=== PATIENT | female | born 1985 | race Caucasian/White ===

== ENCOUNTER 2017-08-26 01:44 | Emergency (ER) | payer BC, MEDICAID ==
[2017-08-26] MEDS: IBUPROFEN 600 MG TAB PO (05:56)
== END 2017-08-26 07:00 | disposition home or self-care (01) ==
LOC: FTE 01:44
DX: L29.9 Pruritus, unspecified (principal); R40.2412 Glasgow coma scale score 13-15, at arrival to emergency department
CPT/HCPCS: 99283

== ENCOUNTER 2018-07-15 17:53 | Emergency (ER) | payer BC ==
[2018-07-15] MEDS: LORAZEPAM 1 MG TAB PO (18:59)
[2018-07-15] MEDS: IBUPROFEN 600 MG TAB PO (18:59)
== END 2018-07-15 19:26 | disposition home or self-care (01) ==
LOC: FTE 17:53
DX: M54.2 Cervicalgia (principal)
CPT/HCPCS: 99283